=== PATIENT | female | born 1950 | race Caucasian/White ===

== ENCOUNTER 2017-05-02 11:53 | Outpatient (CLI) | payer MEDICARE ==
--- NOTE | 2017-05-02 13:28 | CT ---
NECK CT WITH IV CONTRAST: 05/02/2017 HISTORY: Sinus pressure. Parotid gland fullness. Bilateral parotid swelling for one year. COMPARISON: None. TECHNIQUE: Serial axial CT imaging at 2.5 mm intervals obtained from the skull base through the lung apices wit h intravenous contrast. Coronal and sagittal reformatted imaging obtained. FINDINGS: The imaged lung apices are grossly unremarkable. The imaged paranasal sinuses and mastoid air cells appear well aerated. The retroantral fat and the parapharyngeal fat appear clear bilaterally. There is mild bilateral symmetric prominence of the parotic glands with diffuse fat density. There is no parotid mass lesion identified on either side. Incidental note is made of normal appearing no rachael in the parotid region bilaterally. There is also mild enlargement and fatty density in the sunny on of the bilateral submandibular glands. The vascular structures appear grossly unremarkable. The tonsillar pillars, epiglottis, and pre-epiglottic fat appears unremarkable. Dental amalgam and associated streak artifact limits assessment of the oral tongue and oropharyngeal cavity. The hyoid bone, thyroid cartilage, cricoid cartilage, and thyroid cartilage appear grossly unremarkable. No lymphadenopathy is noted within the neck. There is degenerative change at the atlantoaxial interspace. There is bilateral facet degenerative change, most prominent on the right at C2-C3, C3-C4, and C4-C5 and on the left at C5-C6. No lytic o r blastic bone lesion. IMPRESSION: No parotid mass lesion noted on either side. Incidental findings as detailed above. POS: [facility]
[2017-05-02] MEDS ORDERED: Iopamidol 370 76% 100 ML VIAL ONE (16:35)
== END 2017-05-02 11:54 | disposition home or self-care (01) ==
LOC: CT 11:53
PROVIDERS: ATTEND Otolaryngology Plastic Surgery within the Head & Neck
DX: K11.8 Other diseases of salivary glands (principal); M47.812 Spondylosis without myelopathy or radiculopathy, cervical region
CPT/HCPCS: 70491

== ENCOUNTER 2017-08-05 14:59 | Emergency (ER) | payer MEDICARE ==
[2017-08-05 17:50] LABS: PTT 24.7 SEC (22.9-36.1); Prothrombin Time 13.4 SEC (12.0-14.7)
[2017-08-05 17:51] LABS: Hemoglobin 13.5 g/dL (12.0-16.0); Mean Corpuscular HGB CONC 33.1 g/dL (32.0-36.0); Mean Corpuscular Hemoglobin 28.8 pg (27.0-31.0); Mean Corpuscular Volume 87.1 fl (81.0-99.0); Mean Platelet Volume 7.6 fL (7.4-10.4); Platelet Count 1128 thou/uL (130-400); RBC Distribution Width 13.7 % (11.5-14.5); Red Blood Cell (RBC) Count 4.69 mill/uL (4.20-5.40); White Blood Cell (WBC) Count 39.6 thou/uL (4.8-10.8)
[2017-08-05 18:02] LABS: Bilirubin Negative (Negative); Blood, Urine Negative (Negative); Clarity CLEAR (Clear); Glucose, Urine (Dipstick) Negative (Negative); Leukocyte Small (Negative); Nitrite Negative (Negative); Protein, Urine (Dipstick) Negative (Neg-Trace); Specific Gravity, Urine 1.021 (1.002-1.036); Urobilinogen 0.2 mg/dL (0.2-1.0)
[2017-08-05 18:04] LABS: Bacteria/HPF None Seen HPF (None Seen); Hyaline Casts/LPF 0-3 HYALINE CAST LPF (0-3 Hyaline); Pathc Cast-AUWi Flag 0.13 (0-2.49); Squamous Epithelial 0-3 HPF (0-3); WBC/HPF 0-3 HPF (0-3)
[2017-08-05 18:09] LABS: ALT (SGPT) 35 U/L (8-55); AST (SGOT) 28 U/L (5-34); Albumin 4.2 g/dL (3.4-4.8); Alkaline Phosphatase 75 U/L (40-150); Anion Gap 15 mmol/L (10-20); BUN (Urea Nitrogen) 14 mg/dL (9.8-20.1); Bilirubin, Total 0.2 mg/dL (0.2-1.2); Calc. Creatinine Clearance 0 mL/min (70-130); Carbon Dioxide 22 mmol/L (23-31); Chloride 105 mmol/L (98-107); Estimated GFR-MDRD 85; Globulin 2.9 g/dL (2.4-3.5); Glucose 157 mg/dL (80-115); Potassium 4.3 mmol/L (3.5-5.1); Protein, Total 7.1 g/dL (6.0-8.3); Sodium 138 mmol/L (136-145)
[2017-08-05 18:17] LABS: Band 5 % (5-11); Blast 3 % (0-0); Eosinophils 2 % (0-10); Lymphocytes 8 % (21-51); MDiff Complete? YES; Metamyelocyte 19 % (0-0); Myelocyte 10 % (0-0); Neutrophil 50 % (42-75); PLT Morphology Comment Appears Increased; Reactive Lymphocytes 3 % (0-10); Reflex for Review?? YES
--- NOTE | 2017-08-05 20:42 | ULT ---
ULTRASOUND ABDOMEN COMPLETE 08/05/17 HISTORY: Elevated platelets, abdominal pain. COMPARISON: None. FINDINGS: The pancreas is not well seen. Diffuse hepatic increase in echotexture. Common bile duct measures under 6 mm. Prior cholecystectomy. The aorta and IVC are unremarkable. The right kidney measures 10.8 x 5 x 5.7 cm without mass, hydronephrosis or abnormal calcifications. The spleen measures 11.9 cm in length. Left kidney measures 10.8 x 5.4 x 4.7 cm without mass, hydronephrosis or abnormal calcifications. IMPRESSION: Diffuse increased hepatic echotexture suggests steatosis or hepatocellular disease. POS: [facility]
--- NOTE | 2017-09-03 18:58 | EKG ---
Test Reason : ABD PAIN Blood Pressure : / mmHG Vent. Rate : 096 BPM Atrial Rate : 096 BPM P-R Int : 174 ms QRS Dur : 090 ms QT Int : 380 ms P-R-T Axes : 057 -67 038 degrees QTc Int : 480 ms Normal sinus rhythm Left axis deviation Low voltage QRS RSR' or QR pattern in V1 suggests right ventricular conduction delay Inferior infarct , age undetermined Abnormal ECG Confirmed by KIP BARAJAS, RODRI Guzman ([id number]), general expeditor XAVI AZEVEDO ([id number]) on 09/03/2017 6:58:18 PM Referred By: Confirmed By:RODRI SHIN MD
== END 2017-08-05 21:15 | disposition home or self-care (01) ==
LOC: ERS 14:59
DX: D47.3 Essential (hemorrhagic) thrombocythemia (principal); D72.829 Elevated white blood cell count, unspecified; F41.9 Anxiety disorder, unspecified; F32.9 Major depressive disorder, single episode, unspecified; Z79.899 Other long term (current) drug therapy; R73.01 Impaired fasting glucose
CPT/HCPCS: 36415; 76700; 80053; 81003; 81015; 83036; 83605; 85007; 85027; 85060; 85610; 85730; 87040; 87086; 93005

== ENCOUNTER 2018-07-29 17:31 | Inpatient (IN) | payer MEDICARE ==
[~2018-07-29 17:31] MED LIST: Iopamidol 370 76% 100 ML VIAL ONE; Iopamidol 370 76% 50 ML VIAL FS ONE
[2018-07-29] MEDS ORDERED: Heparin 25,000 units/D5W 500 ML ONE (17:41)
[2018-07-29] MEDS ORDERED: Nitroglycerin 50 MG/250 ML BOT 0 ML ONE (17:41)
[2018-07-29] MEDS ORDERED: Nitroglycerin 50 MG/250 ML BOT 250 ML ONE (17:42)
[2018-07-29 17:59] LABS: #Eosinphils 0.1 thou/uL (0.0-0.7); #Lymphocytes 2.8 thou/uL (1.20-3.40); #Monocytes 0.6 thou/uL (0.11-0.59); #Neutrophils 6.4 thou/uL (1.40-6.50); %Basophils 0.4 % (0.0-1.0); %Eosinophils 1.3 % (0.0-10.0); %Lymphocytes 27.8 % (21.0-51.0); %Neutrophils 64.4 % (42.0-75.0); Hemoglobin 13.1 g/dL (12.0-16.0); Mean Corpuscular HGB CONC 34.3 g/dL (32.0-36.0); Mean Corpuscular Hemoglobin 29.4 pg (27.0-31.0); Mean Corpuscular Volume 85.8 fL (78.0-98.0); Mean Platelet Volume 7.8 fL (7.4-10.4); Platelet Count 265 thou/uL (130-400); RBC Distribution Width 12.7 % (11.5-14.5); Red Blood Cell (RBC) Count 4.46 mill/uL (4.20-5.40); White Blood Cell (WBC) Count 9.9 thou/uL (4.8-10.8)
[2018-07-29 18:03] LABS: INR-International Normal Ratio 0.9; PTT 22.9 SEC (22.9-36.1); Prothrombin Time 12.3 SEC (12.0-14.7)
[2018-07-29] MEDS ORDERED: Heparin 1,000 UNITS/ML VIAL ONE (18:03)
--- NOTE | 2018-07-29 18:04 | RAD ---
FRONTAL VIEW CHEST: 07/29/18 INDICATION: Chest pain. FINDINGS: There is no evidence of consolidation, effusion or pneumothorax. There is elevation of the right laurie diaphragm. The cardiac silhouette is accentuated by portable technique. IMPRESSION: No focal consolidation. POS: [facility]
[2018-07-29] MEDS ORDERED: Midazolam HCl 2 mg/2 ml Vial ONE (18:24)
[2018-07-29 18:25] LABS: CKMB 16.2 ng/mL (0-6.6)
[2018-07-29 18:28] LABS: ALT (SGPT) 58 U/L (8-55); AST (SGOT) 67 U/L (5-34); Albumin 4.1 g/dL (3.4-4.8); Alkaline Phosphatase 76 U/L (40-150); Anion Gap 17 mmol/L (10-20); BUN (Urea Nitrogen) 11 mg/dL (9.8-20.1); Bilirubin, Total 0.3 mg/dL (0.2-1.2); CK (CPK) 359 U/L (29-168); Calc. Creatinine Clearance 0 mL/min (70-130); Calcium 9.1 mg/dL (7.8-10.44); Carbon Dioxide 26 mmol/L (23-31); Chloride 102 mmol/L (98-107); Estimated GFR-MDRD 78; Glucose 122 mg/dL (80-115); Lipase 43 U/L (8-78); Potassium 3.9 mmol/L (3.5-5.1); Protein, Total 7.1 g/dL (6.0-8.3); Sodium 141 mmol/L (136-145)
[2018-07-29] MEDS ORDERED: Heparin 10,000 UNITS/1 ML VIAL ONE (18:41)
[2018-07-29] MEDS ORDERED: TICAGRELOR 90 MG TABLET ONE (18:56)
[2018-07-29] MEDS ORDERED: Nitroglycerin 100MG/250ML BOT 250 ML ONE (18:56)
[2018-07-29] MEDS ORDERED: Morphine 4 MG/ML VIAL SLOW IVP PRN (19:37)
[2018-07-29] MEDS ORDERED: Nitroglycerin 0.4 MG TAB (25 Tab Bottle) SL PRN (19:37)
[2018-07-29 20:45] VITALS: BMI 33.8
[2018-07-29 21:50] LABS: Troponin I 14.495 ng/mL (< 0.028)
[2018-07-29] MEDS: TICAGRELOR 90 MG TABLET PO SCH (22:14)
[2018-07-29] MEDS: Sodium Chloride 0.9% 1,000 ML IV SCH (22:15)
[2018-07-29] MEDS: Morphine 4 MG/ML VIAL SLOW IVP PRN (22:27)
[2018-07-30 00:01] LABS: Critical Call Chem Troponin I RESULT DECREASING; Troponin I 4.996 ng/mL (< 0.028)
--- NOTE | 2018-07-30 00:26 | HP ---
INDICATION FOR ADMISSION: This is a 68-year-old female with acute inferior myocardial infarction. HISTORY OF PRESENT ILLNESS: This very pleasant 68-year-old female has no previous cardiac history, but does have a history of hypertension and hypercholesterolemia. She has been noticing some chest pain on off for the last several days. It got worse today and she called 911. She was taken by EMS to [facility]. The chest pain started this afternoon and increased and would radiate to the arms and into her neck. She said it was a choking-type sensation. She took some gas pills and an antacid and this did not relieve her pain. She has been given Zofran, aspirin, and fentanyl in the ambulance. Her chest pain is now decreased from 10/10 to 2/10. EKG shows acute inferior myocardial infarction. She was diagnosed actually about a year ago and has been followed by MD Timmons for CML and she had a cardiac evaluation at that time. Apparently, her ejection fraction was 63% by echocardiogram. She also apparently had a stress test last year. They were both found to be unremarkable. She said she had a cardiac catheterization about 10 years ago due to episode of chest pain when she was working and apparently there were no abnormalities noted at that time either. PAST MEDICAL HISTORY: Significant for CML. She is on chemotherapy. She has history of cholecystectomy, hysterectomy, bilateral cataract surgery, hypertension, and hypercholesterolemia. SOCIAL HISTORY: She is . She has 3 children. No heart disease. No alcohol or tobacco abuse. 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 FAMILY HISTORY: Her father of myocardial infarction at age 47. ALLERGIES: SHE IS ALLERGIC TO SULFA AND STATINS. PRESENT MEDICATIONS: Please refer to the nurse's notes. REVIEW OF SYSTEMS: 12-point review of systems unremarkable except for what is noted in the history of present illness. PHYSICAL EXAMINATION: GENERAL: Reveals a middle-aged, somewhat overweight female. VITAL SIGNS: Blood pressure 149/91, heart rate is 82 and regular. HEENT: Unremarkable. NECK: Carotid pulses are present. There were no bruits. CHEST: Clear to auscultation without rales, rhonchi, or wheezing. CARDIOVASCULAR: Reveals a regular rate and rhythm at this time with normal S1, S2. I cannot hear an S3 nor an S4. There were no significant murmurs, heaves, thrills, bruits, or rubs. ABDOMEN: She is obese. Positive bowel sounds. No organomegaly or masses noted. VASCULAR: Femoral pulses are present. EXTREMITIES: Show no clubbing, cyanosis, or edema. Pedal pulses are present. NEUROLOGIC: The patient is fully intact. SKIN: Warm and dry at this time. EKG shows acute inferior myocardial infarction with ST-segment elevation in lead III as well as some reciprocal changes laterally. Chest x-ray shows no evidence of acute processes. IMPRESSION: Acute inferior myocardial infarction. The patient will be advised to go to the director of cardiac cath lab urgently for evaluation. I have explained the procedure, the risks to her to include bleeding, infection, possibility of myocardial infarction, CVA, renal insufficiency, allergic contrast reaction, and the possibility of . She understands, agrees to proceed with plan for emergent cardiac catheterization. Her laboratory data is still pending. Job ID: [id number]
[2018-07-30] MEDS: Morphine 4 MG/ML VIAL SLOW IVP PRN (02:18)
[2018-07-30 05:28] LABS: #Basophils 0.1 thou/uL (0.0-0.2); #Eosinphils 0.1 thou/uL (0.0-0.7); #Lymphocytes 2.3 thou/uL (1.20-3.40); #Monocytes 0.6 thou/uL (0.11-0.59); #Neutrophils 4.4 thou/uL (1.40-6.50); %Basophils 0.9 % (0.0-1.0); %Eosinophils 1.4 % (0.0-10.0); %Lymphocytes 30.8 % (21.0-51.0); %Monocytes 8.4 % (0.0-10.0); %Neutrophils 58.5 % (42.0-75.0); Hemoglobin 11.3 g/dL (12.0-16.0); Mean Corpuscular HGB CONC 33.8 g/dL (32.0-36.0); Mean Corpuscular Hemoglobin 29.3 pg (27.0-31.0); Mean Corpuscular Volume 86.6 fL (78.0-98.0); Mean Platelet Volume 8.3 fL (7.4-10.4); Platelet Count 237 thou/uL (130-400); RBC Distribution Width 12.8 % (11.5-14.5); Red Blood Cell (RBC) Count 3.86 mill/uL (4.20-5.40); White Blood Cell (WBC) Count 7.5 thou/uL (4.8-10.8)
[2018-07-30 05:51] LABS: ALT (SGPT) 45 U/L (8-55); AST (SGOT) 58 U/L (5-34); Albumin 3.5 g/dL (3.4-4.8); Alkaline Phosphatase 63 U/L (40-150); Anion Gap 12 mmol/L (10-20); BUN (Urea Nitrogen) 9 mg/dL (9.8-20.1); Bilirubin, Total 0.3 mg/dL (0.2-1.2); Calc. Creatinine Clearance 119 mL/min (70-130); Calcium 8.3 mg/dL (7.8-10.44); Carbon Dioxide 24 mmol/L (23-31); Chloride 107 mmol/L (98-107); Estimated GFR-MDRD 89; Globulin 2.5 g/dL (2.4-3.5); Glucose 101 mg/dL (80-115); Potassium 3.2 mmol/L (3.5-5.1); Sodium 140 mmol/L (136-145)
[2018-07-30] MEDS: Sodium Chloride 0.9% 1,000 ML IV SCH ×2 (07:09→16:50)
[2018-07-30] MEDS: TICAGRELOR 90 MG TABLET PO SCH ×2 (08:21→22:18)
[2018-07-30] MEDS: Lisinopril 5 MG TAB PO SCH (08:21)
[2018-07-30] MEDS: DULoxetine 30 MG CAP PO SCH (08:21)
[2018-07-30] MEDS: Ezetimibe 10 MG TAB PO SCH (08:21)
[2018-07-30] MEDS: Metoprolol Tartrate 100 MG TAB PO SCH (08:21)
[2018-07-30] MEDS ORDERED: VASCEPA PO SCH (09:00)
[2018-07-30 15:22] LABS: CKMB 19.2 ng/mL (0-6.6)
[2018-07-30] MEDS ORDERED: Lorazepam 1 MG TAB PO PRN (16:45)
--- NOTE | 2018-07-30 23:07 | PRG ---
DATE OF SERVICE: 07/30/2018 This is a followup after an ST-segment elevation myocardial infarction in the inferior myocardium. She underwent the angioplasty and stent placement yesterday evening for a subtotal occlusion of the right coronary artery. She was implanted with a 3.0 x 16 mm non drug coated stent, dilated up to 3.0 mm. There was no evidence of residual stenosis. She is in the intensive care unit now. She has been doing fine. She has had no more complaints of chest discomfort. Her vital signs are stable. Her blood pressure is 118/72, heart rate of 73, and shows a sinus rhythm, respiratory rate 15, O2 saturation 96%. She is afebrile. LABORATORY DATA: Shows a hemoglobin of 11.3, hematocrit 33, WBC is 7.5. Her troponin I actually increased this morning up to 16.7. On admission, she was 4.9, and MB was 19.2. She has done well after the angioplasty and stent placement and most likely will be able to be transferred out to the floor later today. PHYSICAL EXAMINATION: CHEST: Clear to auscultation. CARDIOVASCULAR: Regular rate and rhythm. She has positive bowel sounds. There was a good pulse in the femoral area. There is no hematoma. She has pedal pulses and no edema. IMPRESSION: 1. Stable. The patient is status post inferior myocardial infarction, which is most likely very small. She did have a normal ejection fraction at the time of the cardiac catheterization. After the end of the procedure, this was evaluated. 2. Successful angioplasty and stent placement to the right coronary artery. 3. History of hypercholesterolemia. She says she is intolerant to statins. We will try to get her approved for Repatha. 4. Anxiety. She is requesting to have some medication to help sleep. I believe she has been on medications chronically in the past. We will continue these medications. 5. History of hypertension. This is stable at this time. We will continue her other medications. 6. History of gastroesophageal reflux disease. We will continue her on the Nexium. 7. History of chronic myelogenous leukemia. She is on chemotherapy. This will be dealt by her oncologist at [facility]. PLAN: At this time will be most likely to discharge the patient to home tomorrow. Job ID: [id number]
[2018-07-31] MEDS: Ezetimibe 10 MG TAB PO SCH (09:08)
[2018-07-31] MEDS: Lisinopril 5 MG TAB PO SCH (09:08)
[2018-07-31] MEDS: DULoxetine 30 MG CAP PO SCH (09:09)
[2018-07-31] MEDS: TICAGRELOR 90 MG TABLET PO SCH (09:09)
[2018-07-31] MEDS: Metoprolol Tartrate 100 MG TAB PO SCH (09:09)
[2018-07-31 12:19] VITALS: BP 141/67; TEMP 97.5
[2018-07-31] MEDS ORDERED: DASATINIB 50 MG PO SCH (13:00)
--- NOTE | 2018-07-31 14:55 | PDOC.CTH ---
Cardiology Progress Note - Subjective The pt seen and examined. No overnight events. No cardiac complaints. The questions were answered. - Objective Vital Signs Temp Pulse Resp BP BP BP Pulse Ox 07/31/18 12:15 97.5 F L 80 16 141/67 H 97 07/31/18 09:08 102 H 134/69 07/31/18 09:00 98.6 F 102 H 16 134/69 98 07/31/18 08:00 98 07/31/18 03:30 97.6 F 114 H 18 128/64 96 Weight 200 lb 14.4 oz 07/30/18 07/31/18 08/01/18 06:59 06:59 06:59 Intake Total 953 1983 Output Total 2452 Balance 953 -469 - Physical Examination General/Neuro: alert & oriented x3 Neck: no JVD present Lungs: CTA Heart: RRR Abdomen: soft Extremities: other: (No edema) - Telemetry Telemetry Rhythm: SR - Labs Result Diagrams: 07/30/18 04:04 07/30/18 04:04 Troponin/CKMB CK-MB (CK-2) 19.2 ng/mL (0-6.6) H* 07/30/18 04:04 Troponin I 16.725 ng/mL (< 0.028) H* 07/30/18 04:04 - Assessment/Plan 1. CAD with s/p BMS stent to RCA on 07/29/2018 - stable; on Brilinta, ASA, Metoprolol xL 100mg qd, and CORY. 2. HTN - stable with current med 3. Hyperlipidemia and unable to tolerate statin - possible start Repatha after f /u with Dr Sanchez' office. 4. Anxiety 5. Myleugenius leukemia - f/u MD Timmons. MAR reviewed * From Cardiac standpoint, the pt is stable to d/c home. The pt will f/u with Dr Sanchez' office within 10 days. Review of Systems - Review of Systems Constitutional: reports: no symptoms reported EENTM: reports: no symptoms reported Respiratory: reports: no symptoms reported Cardiac (ROS): reports: no symptoms reported ABD/GI: reports: no symptoms reported : reports: no symptoms reported Musculoskeletal: reports: no symptoms reported Skin: reports: no symptoms reported Neurological: reports: no symptoms reported
== END 2018-07-31 16:45 | disposition home or self-care (01) | DRG 249 ==
LOC: ERS 17:31 → CCL 18:25 → CCU 18:52 → 2NO 07-30 21:03
PROVIDERS: ADMIT Internal Medicine Cardiovascular Disease; ATTEND Internal Medicine Cardiovascular Disease
PROC: 02703DZ Dilation of Coronary Artery, One Artery with Intraluminal Device, Percutaneous Approach (ICD-10-PCS; principal; 2018-07-29)
PROC: 4A023N7 Measurement of Cardiac Sampling and Pressure, Left Heart, Percutaneous Approach (ICD-10-PCS; 2018-07-29)
PROC: B2111ZZ Fluoroscopy of Multiple Coronary Arteries using Low Osmolar Contrast (ICD-10-PCS; 2018-07-29)
PROC: B2151ZZ Fluoroscopy of Left Heart using Low Osmolar Contrast (ICD-10-PCS; 2018-07-29)
DX: I21.19 ST elevation (STEMI) myocardial infarction involving other coronary artery of inferior wall (principal); C92.10 Chronic myeloid leukemia, BCR/ABL-positive, not having achieved remission; I10 Essential (primary) hypertension; E78.5 Hyperlipidemia, unspecified; Z88.2 Allergy status to sulfonamides; Z88.8 Allergy status to other drugs, medicaments and biological substances; F41.9 Anxiety disorder, unspecified; K21.9 Gastro-esophageal reflux disease without esophagitis; I25.10 Atherosclerotic heart disease of native coronary artery without angina pectoris
CPT/HCPCS: 36415; 71045; 80053; 82550; 82553; 83690; 83880; 84484; 85025; 85347; 85610; 85730; 86850; 86900; 86901; 92928; 93005; 93010; 93458; 93798; 96365; 96374; 96375; 99152; 99153; C1725; C1769; C1876; C1887; J1644; J2250; J2270

== ENCOUNTER 2018-09-12 11:37 | Observation (INO) | payer MEDICARE ==
[2018-09-12] MEDS ORDERED: Acetaminophen 325 MG TAB PO PRN (16:00)
[2018-09-12] MEDS ORDERED: Acetaminophen 650 MG Suppository PR PRN (16:00)
[2018-09-12] MEDS ORDERED: Ondansetron PF 4 MG/2 ML Vial IVP PRN (16:00)
[2018-09-12] MEDS ORDERED: Ondansetron ODT 4 MG TAB PO PRN (16:00)
[2018-09-12 17:00] LABS: Troponin I 0.017 ng/mL (< 0.028)
[2018-09-12] MEDS ORDERED: Loperamide HCl 2 MG CAP ONE (17:42)
[2018-09-12] MEDS ORDERED: Melatonin 3 MG TAB PO PRN (18:32)
[2018-09-12] MEDS ORDERED: Lorazepam 1 MG TAB PO PRN (18:32)
--- NOTE | 2018-09-12 19:14 | HP ---
GARMENT LOOPER: Andres Bui MD The patient was at cardiac rehab today, noted some tightness in her chest, persistent rapid heartbeat. She had also some chills and sweats with it. She presented to the emergency room, shortly thereafter the pulse dropped down, the tightness went away. She developed abdominal cramps and diarrhea. It is pertinent she had PCI on 07/29/2018. She states that her discomfort is vastly minimal compared to the discomfort before her PCI. It was dramatically worse. PHYSICAL EXAMINATION: VITAL SIGNS: Current vital signs are still being done in the emergency room. Her pulse is down to about 76, blood pressure is within normal limits. NECK: She has no neck vein distention. CHEST: Clear to auscultation and percussion. HEART: Regular rate and rhythm. No murmurs or gallops. ABDOMEN: Soft. It is hyperactive bowel sounds. EXTREMITIES: She has no edema. It is pertinent in her laboratory, troponins are normal x3. CBC was normal. Comprehensive metabolic profile was normal except for some trivial abnormalities. AST of 37, blood sugar 116, potassium 3.4. DIAGNOSES: At this time is working diagnosis of a probable viral gastroenteritis, some chest tightness related to tachycardia as part of the prodrome of the viral illness. History of coronary artery disease, post percutaneous coronary intervention with normal troponins. She also has history of chronic myelogenous leukemia on chemotherapy, history of hypertension. I have discussed the current status with the patient. 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 Job ID: [id number]
[2018-09-12 19:50] LABS: Troponin I 0.014 ng/mL (< 0.028)
[2018-09-12 19:52] VITALS: BMI 30.5
[2018-09-12] MEDS: Sodium Chloride 0.9% 1,000 ML IV SCH (20:07)
[2018-09-12] MEDS: TICAGRELOR 90 MG TABLET PO SCH (20:12)
[2018-09-13] MEDS: Loperamide HCl 2 MG CAP PO PRN ×2 (00:23→08:47)
[2018-09-13 05:32] LABS: #Basophils 0.1 thou/uL (0.0-0.2); #Eosinphils 0.1 thou/uL (0.0-0.7); #Lymphocytes 2.6 thou/uL (1.20-3.40); #Monocytes 0.5 thou/uL (0.11-0.59); #Neutrophils 3.5 thou/uL (1.40-6.50); %Eosinophils 2.2 % (0.0-10.0); %Monocytes 7.2 % (0.0-10.0); %Neutrophils 51.6 % (42.0-75.0); Mean Corpuscular HGB CONC 32.8 g/dL (32.0-36.0); Mean Corpuscular Hemoglobin 28.9 pg (27.0-31.0); Mean Corpuscular Volume 88.1 fL (78.0-98.0); Mean Platelet Volume 8.7 fL (7.4-10.4); Platelet Count 225 thou/uL (130-400); RBC Distribution Width 13.2 % (11.5-14.5); Red Blood Cell (RBC) Count 4.49 mill/uL (4.20-5.40); White Blood Cell (WBC) Count 6.8 thou/uL (4.8-10.8)
[2018-09-13 06:10] LABS: ALT (SGPT) 42 U/L (8-55); AST (SGOT) 34 U/L (5-34); Albumin 3.9 g/dL (3.4-4.8); Alkaline Phosphatase 64 U/L (40-150); Anion Gap 15 mmol/L (10-20); BUN (Urea Nitrogen) 13 mg/dL (9.8-20.1); Bilirubin, Total 0.2 mg/dL (0.2-1.2); Calc. Creatinine Clearance 97 mL/min (70-130); Calcium 9.1 mg/dL (7.8-10.44); Carbon Dioxide 20 mmol/L (23-31); Chloride 110 mmol/L (98-107); Estimated GFR-MDRD 79; Globulin 2.4 g/dL (2.4-3.5); Glucose 97 mg/dL (80-115); Potassium 3.9 mmol/L (3.5-5.1); Protein, Total 6.3 g/dL (6.0-8.3); Sodium 141 mmol/L (136-145)
[2018-09-13] MEDS: Sodium Chloride 0.9% 1,000 ML IV SCH (07:15)
--- NOTE | 2018-09-13 07:33 | HP ---
REASON FOR ADMISSION: Palpitations and chest pain. HISTORY OF PRESENT ILLNESS AND REVIEW OF SYSTEMS: Ms. Davis is a very pleasant 68-year-old woman who presents after experiencing palpitations and noted to be tachycardic with heart rate in the 120s while at cardiac rehab. She had similar sensation associated with STEMI she experienced 6 weeks ago. She reports having mild shortness of breath. Denies any diaphoresis. Denies any pain radiating to the jaw or bilateral arms, but states she felt a knot sensation on the left side of her neck, which she does not describe as pain. She has a history of CML and reports undergoing angioplasty with stent placement in early 07/2018. She had been found at that time to have subtotal occlusion of the right coronary artery. The patient has a known history of hypertension, hyperlipidemia as well as CML, currently on chemotherapy at [facility]. She reports undergoing regular echocardiograms and the last one done showed an EF of 63%. At this present time, the patient states she feels well and often is back to baseline. Her heart rate has settled to the 70s. Denies having any chest pain or palpitations at present. Denies any shortness of breath. Has not had any recent fevers, chills, or sweats. Has not had a cough. Denies any hemoptysis. No history of blood clots. The patient does report having two bouts of diarrhea since being in the ED. She states she has not had issues with this in recent days. Denies any abdominal pain or cramping. No associated nausea or vomiting. Has been tolerating a regular diet in recent days. Has not noted any blood in her stools. All other review of systems are negative. PAST MEDICAL HISTORY: 1. CML, on chemotherapy at [facility]. 2. Hypertension. 3. Hypercholesterolemia. 4. STEMI in 07/2018, requiring angioplasty and stent placement. PAST SURGICAL HISTORY: 1. Cholecystectomy. 2. Hysterectomy. 3. Bilateral cataract surgery. SOCIAL HISTORY: The patient is . She is fully independent and denies any alcohol use or tobacco use. No illicit drug use. FAMILY HISTORY: Her father of [place] at age 47. ALLERGIES: SULFA AND STATINS. CURRENT MEDICATIONS: 1. Metoprolol 100 mg p.o. daily. 2. Nexium 40 mg p.o. daily. 3. Vascepa 1 g four tablets daily. 4. Duloxetine 30 mg p.o. daily. 5. Zetia 10 mg p.o. daily. 6. Metaxalone 800 mg p.o. daily as needed. 7. Lorazepam 1 to 2 mg p.o. every 12 hours as needed. 8. Aspirin 81 mg p.o. daily. 9. Allopurinol 300 mg p.o. daily. 10. Sprycel 50 mg p.o. daily. 11. Vitamin B12 p.o. daily. 12. Melatonin 10 mg p.o. daily. PHYSICAL EXAMINATION: GENERAL: The patient appears well developed, well nourished, and is in no acute distress. VITAL SIGNS: Temperature 98.3, pulse 79, respirations 17, blood pressure 116/78, and O2 saturation 99% on room air. HEENT: Normocephalic and atraumatic. Pupils are equal, round, and reactive to light. Sclerae are without icterus. Oropharynx is clear. NECK: Supple. No lymphadenopathy. LUNGS: Clear to auscultation bilaterally without wheezes, rales, or rhonchi. CARDIAC: Regular rate and rhythm without audible murmurs, rubs, or gallops. ABDOMEN: Soft, nontender, nondistended. Active bowel sounds present. EXTREMITIES: No clubbing, cyanosis, or edema. NEUROLOGIC: Alert and oriented x3. SKIN: Without rash or jaundice. LABORATORY DATA: Full blood count unremarkable. D-dimer 0.29. Potassium slightly low at 3.4, BUN 15, creatinine 0.92, GFR 61, glucose 116. LFTs unremarkable. Troponin 0.013 and second troponin 0.020. BNP 41.6. TSH 2.89. Chest x-ray from 09/12/2018, no acute findings. IMPRESSION AND PLAN: Mrs. Davis is a very pleasant 68-year-old woman who presented with palpitations and chest discomfort somewhat to that experience with previous ST-elevation myocardial infarction in 07/2018. She is status post angioplasty with stent placement 6 weeks ago. She is being admitted for the management of the following; 1. Chest pain rule out. First and second troponin unremarkable. Awaiting third troponin. Given her recent ST-elevation myocardial infarction and significantly elevated heart rate in the 120s, we will place consultation with Cardiology. She underwent most recent catheterization by Dr. Sanchez. D-dimer done was unremarkable. 2. Hypertension. Resume home medications. We will monitor. 3. Hyperlipidemia. Resume home medications. 4. Palpitations. Heart rate in the 70s present. We will continue to monitor. We will add . Job ID: [id number]
[2018-09-13] MEDS: TICAGRELOR 90 MG TABLET PO SCH (08:47)
[2018-09-13] MEDS ORDERED: DULoxetine 30 MG CAP PO SCH (09:00)
[2018-09-13] MEDS ORDERED: Aspirin Chewable 81 MG TAB PO SCH (09:00)
[2018-09-13] MEDS ORDERED: DASATINIB 50 MG PO SCH (09:00)
[2018-09-13] MEDS ORDERED: Lisinopril 5 MG TAB PO SCH (09:00)
[2018-09-13] MEDS ORDERED: Acetaminophen/Codeine 30-300mg Tablet PO ONE (09:15)
[2018-09-13 12:02] VITALS: BP 129/72; TEMP 97.8
--- NOTE | 2018-09-14 14:37 | DIS ---
DATE OF ADMISSION: 09/12/2018 DATE OF DISCHARGE: 09/13/2018 DISCHARGE DIAGNOSES: 1. Viral gastroenteritis. 2. Chronic myeloid leukemia. 3. History of ST-elevation myocardial infarction, status post stent placement. CONSULTING PHYSICIANS: None. HOSPITAL COURSE AND REVIEW OF SYSTEMS: Ms. Davis is a very pleasant 68-year-old woman, who presented with complaints of palpitations and was initially noted to have a heart rate in the 120s when she came into the ED. She reports having issues with diarrhea at the time of presentation and continued to have loose stools throughout her stay. She was admitted for chest pain rule out due to the complaints of palpitations and tachycardia, given the recent STEMI done 6 weeks ago with stent placement. Cardiac enzymes were done and were negative. Her laboratory studies overall were unremarkable with no elevated white count or electrolyte abnormality. Her kidney function was also normal. She underwent a chest x-ray, which demonstrated no acute intrathoracic finding. The patient remained free of any chest pain throughout her entire hospital stay and her vital signs were normal throughout her stay as well. She was felt to be suffering from a viral gastroenteritis as her stool cultures were negative including C diff. The patient tolerated oral intake throughout her stay and on day of discharge, reported significant improvement with her loose stools. She denies having any fevers, chills, or sweats. Denies having any headaches or dizziness. Denies any chest pain or shortness of breath. No further palpitations experienced throughout her stay. No abdominal pain or cramping. Her loose stools have tapered off compared to when she first came in. Denies having any urinary symptoms. Overall, she feels well and without any weakness or fatigue. She has been mobilizing without any difficulties and denies having any trouble tolerating food intake. PHYSICAL EXAMINATION: GENERAL: The patient appears well developed, well nourished, and is in no acute distress. VITAL SIGNS: Temperature 97.8, pulse 60, respirations 16, O2 saturation 99% on room air, blood pressure 129/72. HEENT: Normocephalic, atraumatic. Pupils are equal, round, reactive to light. Sclerae are without icterus. Oropharynx is clear. NECK: Supple without lymphadenopathy. LUNGS: Clear to auscultation bilaterally without wheezes, rales, or rhonchi. CARDIAC: Regular rate and rhythm. ABDOMEN: Soft, nontender, nondistended. Normoactive bowel sounds present. EXTREMITIES: No clubbing, cyanosis, or edema. NEUROLOGIC: Alert and oriented x3. SKIN: Without rash or jaundice. LABORATORY DATA: White blood count 6.9, hemoglobin 13, hematocrit 39.6, platelets 225, absolute neutrophil count 3.5. Sodium 141, potassium 3.9, chloride 110, carbon dioxide 20, BUN 13, creatinine 0.73, GFR 79, magnesium 1.9, calcium 9.1. LFTs unremarkable. Troponin negative x3. Albumin 3.9. IMAGING DATA: As mentioned above, she underwent a chest x-ray that demonstrated no acute intrathoracic findings. No infiltrate or effusion seen. Vascularity appeared normal. Heart size also normal, and lungs clear. PROCEDURES: None. DISCHARGE MEDICATION: On day of discharge, the patient is complaining of a mild cough. She is given a prescription for Tessalon 100 mg p.o. three times a day as needed. Otherwise, the patient is advised to resume home medications. CONDITION: Stable. DISCHARGE ACTIVITY: As tolerated. DIET: Heart healthy. FOLLOWUP: The patient is advised to see Dr. Mares within the next week, advised to follow up with Dr. Bui as already scheduled in 10 days. DISPOSITION: The patient is medically cleared for discharge home on September 13, 2018. The patient's case was discussed with Dr. Dejesus, who agrees with the plan of care as described above. Job ID: [id number]
== END 2018-09-13 13:12 | disposition home or self-care (01) ==
LOC: ERS 11:37 → ERHOLD 13:15 → 2SW 19:47
PROVIDERS: ADMIT Internal Medicine; ATTEND Internal Medicine
DX: R07.89 Other chest pain (principal); A08.4 Viral intestinal infection, unspecified; C92.10 Chronic myeloid leukemia, BCR/ABL-positive, not having achieved remission; I10 Essential (primary) hypertension; E78.00 Pure hypercholesterolemia, unspecified; R00.0 Tachycardia, unspecified; Z88.2 Allergy status to sulfonamides; Z88.8 Allergy status to other drugs, medicaments and biological substances; Z79.899 Other long term (current) drug therapy; Z95.5 Presence of coronary angioplasty implant and graft; R06.02 Shortness of breath
CPT/HCPCS: 80053; 83735; 84484; 85025; 87045; 87046; 87324; 87449 ×2; 87899 ×2; 96360; 96361 ×3; 99285; G0378 ×2; 36415

== ENCOUNTER 2019-08-19 06:12 | Emergency (ER) | payer MEDICARE ==
[2019-08-19 07:05] LABS: #Basophils 0.1 thou/uL (0.0-0.2); #Eosinphils 0.1 thou/uL (0.0-0.7); #Lymphocytes 1.9 thou/uL (1.20-3.40); #Monocytes 0.8 thou/uL (0.11-0.59); #Neutrophils 5.7 thou/uL (1.40-6.50); %Eosinophils 1.3 % (0.0-10.0); %Lymphocytes 22.3 % (21.0-51.0); %Monocytes 8.7 % (0.0-10.0); %Neutrophils 66.7 % (42.0-75.0); Hemoglobin 11.9 g/dL (12.0-16.0); Mean Corpuscular HGB CONC 32.4 g/dL (32.0-36.0); Mean Corpuscular Hemoglobin 27.5 pg (27.0-31.0); Mean Corpuscular Volume 84.8 fL (78.0-98.0); Mean Platelet Volume 7.7 fL (7.4-10.4); Platelet Count 364 thou/uL (130-400); RBC Distribution Width 13.4 % (11.5-14.5); Red Blood Cell (RBC) Count 4.34 mill/uL (4.20-5.40); White Blood Cell (WBC) Count 8.6 thou/uL (4.8-10.8)
[2019-08-19 07:26] LABS: ALT (SGPT) 11 U/L (8-55); AST (SGOT) 12 U/L (5-34); Albumin 4.1 g/dL (3.4-4.8); Alkaline Phosphatase 93 U/L (40-110); Anion Gap 15 mmol/L (10-20); BUN (Urea Nitrogen) 12 mg/dL (9.8-20.1); Bilirubin, Total 0.3 mg/dL (0.2-1.2); Calc. Creatinine Clearance 0 mL/min (70-130); Calcium 9.5 mg/dL (7.8-10.44); Carbon Dioxide 27 mmol/L (23-31); Chloride 99 mmol/L (98-107); Estimated GFR-MDRD 70; Globulin 3.2 g/dL (2.4-3.5); Glucose 122 mg/dL (80-115); Potassium 3.8 mmol/L (3.5-5.1); Protein, Total 7.3 g/dL (6.0-8.3); Sodium 137 mmol/L (136-145)
--- NOTE | 2019-08-19 07:40 | RAD ---
EXAM: Single view of the chest HISTORY: Fever COMPARISON: 09/12/2018 FINDINGS: Single view of the chest shows a normal sized cardiomediastinal silhouette. No consolidatio n is seen. Multiple pulmonary nodules detected the chest which were not definitely seen on the prior radiograph. The largest is seen projecting of the right lower lobe measuring 1.5 cm in size. Th e bones are unremarkable. IMPRESSION: New pulmonary nodules. A CT the chest with contrast is recommended for further evaluation .
[2019-08-19 08:08] LABS: Bacteria/HPF 1+ HPF (None Seen); Bilirubin Negative (Negative); Blood, Urine Negative (Negative); Clarity Clear (Clear); Glucose, Urine (Dipstick) Normal (Negative); Leukocyte 250 Leu/uL (Negative); Nitrite Negative (Negative); Protein, Urine (Dipstick) 10 mg/dL (Neg-Trace); RBC/HPF 0-3 HPF (0-3); Squamous Epithelial 0-3 HPF (0-3); Urobilinogen Normal mg/dL (Less than 2)
[2019-08-19] MEDS ORDERED: Acetaminophen 500 MG TAB ONE (09:16)
[2019-08-19] MEDS ORDERED: Metoclopramide 10 MG/10 ML UDCUP ONE (09:16)
[2019-08-19] MEDS ORDERED: diphenhydrAMINE 50 MG/ML VIAL ONE (09:16)
[2019-08-19] MEDS ORDERED: Metoclopramide HCl 10 MG/2 ML VIAL ONE (09:17)
--- NOTE | 2019-08-19 09:37 | CT ---
CT head without contrast: Multiple axial tomograms obtained through the head without IV enhancement. INDICATIONS: Headache COMPARISON: 10/18/2012 FINDINGS: Mild cortical volume loss. Mild chronic ischemic white matter change. 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 This appears stable. No evidence of intracranial mass, hemorrhage, edema, or infarct. Visualized sinuses and mastoids appear clear. Bony calvarium appears unremarkable. IMPRESSION: No acute finding
[2019-08-19 10:18] LABS: Lactic Acid 1.9 mmol/L (0.5-2.2)
== END 2019-08-19 11:51 | disposition home or self-care (01) ==
LOC: ERS 06:12
DX: R51 Headache (principal); R91.8 Other nonspecific abnormal finding of lung field; I10 Essential (primary) hypertension; I25.2 Old myocardial infarction; F41.9 Anxiety disorder, unspecified; F32.9 Major depressive disorder, single episode, unspecified; Z79.82 Long term (current) use of aspirin; Z79.899 Other long term (current) drug therapy
CPT/HCPCS: 70450; 71045; 80053; 81003; 81015; 83605; 85025; 87040; 87086; 87804; 96361; 96374; 96375; J1200; J2765